=== PATIENT | female | born 1960 ===

== ENCOUNTER 2018-04-14 12:23 | Day surgery (SDC) | payer BC ==
[2018-04-10 09:31] VITALS: BMI 35.6
[2018-04-14 13:03] LABS: BASO # 0.02 K/mm3 (0.0-2.0); BASO % 0.3 % (0.0-3.0); EOS # 0.1 (0.0-0.7); GRAN # 3.26 (1.4-6.5); GRAN % 53.6 % (50.0-68.0); HEMOGLOBIN 12.5 g/dL (12.0-16.0); LYMPH # 2.3 (1.2-3.4); LYMPH % 37.9 % (22.0-35.0); MEAN CELL VOLUME 84.1 fl (80.0-105.0); MEAN CORPUSCULAR HEMOGLOBIN 27.7 pg (25.0-35.0); MEAN CORPUSCULAR HGB CONC 32.9 g/dl (31.0-37.0); MEAN PLATELET VOLUME 9.1 fl (7.0-11.0); MONO # 0.4 (0.1-0.6); MONO % 7.2 % (1.0-6.0); RBC 4.52 10^6/uL (3.5-6.1); RED CELL DISTRIBUTION WIDTH 12.6 % (11.5-14.5); WHITE BLOOD COUNT 6.1 10^3/ul (4.5-11.0)
[2018-04-14 13:11] LABS: BLOOD UREA NITROGEN 16 mg/dL (7-21); CALCIUM 9.3 mg/dL (8.4-10.5); GFR NON-AFRICAN AMERICAN > 60; INR 1.03; PARTIAL THROMBOPLASTIN TIME 30.1 Seconds (25.1-36.5); PROTHROMBIN TIME 11.8 SECONDS (9.4-12.5)
[2018-04-14] MEDS ORDERED: Lidocaine Hydrochloride 1% 10 ML ONE (13:48)
[2018-04-14] MEDS ORDERED: Midazolam 2 MG/2 ML VIAL ONE (13:49)
[2018-04-14] MEDS ORDERED: Midazolam 2 MG/2 ML VIAL IVP ONE (14:02)
[2018-04-14] MEDS ORDERED: Oxycodone/Acetaminophen 5/325 mg Tab PO PRN (14:27)
[2018-04-14] MEDS ORDERED: Sodium Chloride 0.45% 1,000 ML IV SCH (14:30)
[2018-04-14] MEDS ORDERED: Oxycodone/Acetaminophen 5/325 mg Tab ONE (15:28)
[2018-04-14 15:59] VITALS: PULSE 75; RESP 18; O2SAT 95
[2018-04-14 16:27] VITALS: BP 125/74; TEMP 78
--- NOTE | 2018-04-14 17:13 | US ---
PROCEDURE: Ultrasound-guided right thyroid fine needle aspiration biopsy. CLINICAL HISTORY: Dominant 2.2 cm isoechoic right thyroid nodule. Evaluate for malignancy. PHYSICIAN(S): Karsten Phan M.D. TECHNIQUE: The relative risks and indications for the procedure were explained to the patient and consent obtained. The patient was placed supine on the stretcher with the neck extended and preliminary sonography of the thyroid performed. This reveal 2.2 cm isoechoic nodule in the mid lobe right thyroid. Smaller nodules are noted on the left. The neck was prepped and draped in the usual sterile fashion. Conscious sedation and monitoring were provided throughout the procedure by a nurse. 1% Xylocaine was used to anesthetize the skin and soft tissues at the access site. Three passes with a 22-gauge needle were performed under ultrasound guidance for fine needle aspiration of the 2.2 cm isoechoic nodule in the right thyroid. The slides were reviewed by pathology and deemed adequate. The patient tolerated the procedure well. IMPRESSION: 1. Ultrasound guided fine needle aspiration of a 2.2 cm isoechoicnodule in the right thyroid.
[2018-04-15] MEDS ORDERED: Iodixanol 320 MG/ML 100 ML BOTTLE IV ONE (00:01)
== END 2018-04-14 16:41 | disposition home or self-care (01) ==
LOC: SDS 12:23
PROVIDERS: ATTEND Radiology Vascular & Interventional Radiology
DX: E04.1 Nontoxic single thyroid nodule (principal); I10 Essential (primary) hypertension
CPT/HCPCS: 10022; 36415; 80048; 85025; 85610; 85730; 88173; 88305; J2250; J2405; J3010; J7030